=== PATIENT | male | born 1995 | race Two or more races ===

== ENCOUNTER 2019-05-28 05:00 | Emergency (ER) | payer MEDICAID, OTHER ==
[~2019-05-28] VITALS: Ht 170.2 cm; Wt 54.5 kg
[~2019-05-28 05:00] MED LIST: NOCURR
[2019-05-28] MEDS ORDERED: IBUPROFEN 600 MG TABLET PO ONE (05:45)
[2019-05-28 07:01] VITALS: BP 135/80
== END 2019-05-28 07:01 | disposition home or self-care (01) ==
LOC: EMS 05:09
DX: N45.1 Epididymitis (principal); I86.1 Scrotal varices
CPT/HCPCS: 76870

== ENCOUNTER 2020-07-15 00:24 | Emergency (ER) | payer OTHER ==
[~2020-07-15] VITALS: Ht 170.2 cm; Wt 72.7 kg
[2020-07-15 00:40] VITALS: BP 142/74
[2020-07-15 01:34] LABS: APPEARANCE,URINE CLOUDY (CLEAR); BILIRUBIN,URINE NEGATIVE (NEGATIVE); GLUCOSE, URINE (UA) NEGATIVE (NEGATIVE); KETONES,URINE NEGATIVE (NEGATIVE); LEUKOCYTE ESTERASE ,URINE NEGATIVE (NEGATIVE); NITRATE,URINE NEGATIVE (NEGATIVE); OCCULT BLOOD,URINE NEGATIVE (NEGATIVE); PROTEIN,URINE TRACE (NEGATIVE); UROBILINOGEN,URINE 0.2 mg/dL (<=1.0)
== END 2020-07-15 03:00 | disposition left against medical advice (07) ==
LOC: EMS 00:27
DX: R30.9 Painful micturition, unspecified (principal); Z53.21 Procedure and treatment not carried out due to patient leaving prior to being seen by health care provider
CPT/HCPCS: 81003